=== PATIENT | female | born 1955 | race Caucasian/White ===

== ENCOUNTER 2023-11-17 16:35 | Outpatient (CLI) | payer OTHER, SELFPAY | END 2023-11-17 16:36 | disposition home or self-care (01) | LOC: NFLDUCREF 16:50 | PROVIDERS: PCP Nurse Practitioner Family; Visit Provider Nurse Practitioner Family | DX: Z11.2 Encounter for screening for other bacterial diseases (principal) | CPT/HCPCS: 87086 ==